=== PATIENT | female | born 1970 | race Caucasian/White ===

== ENCOUNTER 2022-07-07 12:01 | Outpatient (CLI) | payer BC ==
[2022-07-07 13:01] LABS: Hemoglobin 14.2 g/dL (12.0-15.5); Mean Corpuscular HGB CONC 32.3 g/dL (32.0-36.0); Mean Corpuscular Volume 89.6 fl (81.6-98.3); Mean Platelet Volume 9.9 fl (7.4-10.4); Platelet Count 281 10x3/uL (150-450); White Blood Cell (WBC) Count 6.3 10x3/uL (3.5-10.5)
[2022-07-07 13:33] LABS: Anion Gap 13 mmol/L (10-20); BUN (Urea Nitrogen) 19 mg/dL (9.8-20.1); Calc. Creatinine Clearance 0 mL/min (70-130); Calcium 9.6 mg/dL (7.8-10.44); Carbon Dioxide 24 mmol/L (22-29); Chloride 105 mmol/L (98-107); Estimated GFR 74; Glucose 125 mg/dL (70-105); Potassium 4.1 mmol/L (3.5-5.1); Sodium 138 mmol/L (136-145)
== END 2022-07-07 12:02 | disposition home or self-care (01) ==
LOC: CSHLAB 12:01
PROVIDERS: ATTEND Podiatrist Foot & Ankle Surgery
DX: Z01.818 Encounter for other preprocedural examination (principal); Z20.822 Contact with and (suspected) exposure to COVID-19
CPT/HCPCS: 80048; 85027; 87811; 93005; 93010

== ENCOUNTER 2022-07-10 10:00 | Day surgery (SDC) | payer BC ==
[2022-07-08 15:50] VITALS: BMI 30.7
[2022-07-10] MEDS ORDERED: Bupivacaine PF 0.5% 30 ML VIAL ONE (11:05)
[2022-07-10] MEDS ORDERED: Lidocaine 1% MPF 2 ML VIAL ONE (11:15)
[2022-07-10] MEDS ORDERED: Lidocaine 1% PF 5 ML VIAL ONE (11:41)
[2022-07-10] MEDS ORDERED: Fentanyl 100 MCG/2 ML VIAL ONE (11:41)
[2022-07-10] MEDS ORDERED: Ondansetron PF 4 MG/2 ML Vial ONE (11:41)
[2022-07-10] MEDS ORDERED: PROPOFOL 20 ML ONE (11:41)
[2022-07-10] MEDS ORDERED: Midazolam HCl 2 mg/2 ml Vial ONE (11:41)
[2022-07-10] MEDS ORDERED: Ketorolac Tromethamine 30 MG/ML VIAL ONE (11:41)
[2022-07-10] MEDS ORDERED: Dexamethasone 20 MG/5 ML VIAL ONE (11:41)
[2022-07-10] MEDS ORDERED: CEFAZOLIN 2 GM VIAL ONE (11:47)
== END 2022-07-10 14:00 | disposition home or self-care (01) ==
LOC: CSHSDC 10:00
PROVIDERS: ATTEND Podiatrist Foot & Ankle Surgery
PROC: 01BG0ZZ Excision of Tibial Nerve, Open Approach (ICD-10-PCS; principal; 2022-07-10)
DX: G57.81 Other specified mononeuropathies of right lower limb (principal)
CPT/HCPCS: J0690; J1100; J1885; J2250; J2405; J2704; J3010; S0020